=== PATIENT | male | born 1935 | race Caucasian/White ===

== ENCOUNTER 2016-10-30 14:53 | Observation (INO) ==
[2016-10-30 16:30] LABS: Basophils # 0.1 K/mcL (0.0-0.2); Basophils % 0.5 %; Eosinophils # 0.3 K/mcL (0.0-0.6); Eosinophils % 1.4 %; Hematocrit 25.9 % (37.5-50.1); Immature Granulocytes % 0.9 % (0-4); Lymphocytes # 2.1 K/mcL (0.6-4.6); Lymphocytes % 10.4 %; Mean Corpuscular HGB Conc 30.9 g/dL (31.6-35.5); Mean Corpuscular Hemoglobin 25.4 pg (28.0-33.3); Mean Corpuscular Volume 82.2 fL (83.0-100.0); Mean Platelet Volume 9.1 fL (9.4-12.4); Monocytes # 1.3 K/mcL (0.0-1.3); Monocytes % 6.6 %; Neutrophils # 15.9 K/mcL (1.6-8.9); Platelet Count 726 K/mcL (140-400); Red Blood Count 3.15 M/mcL (4.19-5.50); Red Cell Distribution Width 13.9 % (11.5-14.5); Segmented Neutrophils % 80.2 %
[2016-10-30 16:37] LABS: INR 1.2; Prothrombin Time 12.5 Seconds (9.4-12.1)
[2016-10-30 16:40] LABS: Activated Partial Thrombo Time 28.9 Seconds (26.0-36.0)
[2016-10-30 16:44] LABS: Alanine Aminotransferase 20 Units/L (0-55); Albumin/Globulin Ratio 0.7 (1.1-2.2); Alkaline Phosphatase 97 Units/L (38-126); Aspartate Amino Transferase 14 Units/L (5-34); BUN/Creatinine Ratio 19 (6-26); Bilirubin,Direct 0.2 mg/dL (0.0-0.5); Bilirubin,Indirect 0.1 mg/dL (0.0-1.2); Bilirubin,Total 0.3 mg/dL (0.2-1.2); Blood Urea Nitrogen 23 mg/dL (8-26); Carbon Dioxide 25 mEq/L (19-29); Chloride 97 mEq/L (98-109); Globulin 4.1 g/dL (2.4-3.5); Glucose 274 mg/dL (70-99); Osmolality,Calculated 285 (280-300); Potassium 4.6 mEq/L (3.5-4.5); Sodium 131 mEq/L (136-145); Total Protein 7.1 g/dL (6.0-8.3); eGFR For African Americans > 60 (> 60); eGFR For Non-African Americans 56 (> 60)
[2016-10-30 16:45] LABS: Ethanol < 10 mg/dL (0-10)
[2016-10-30 16:56] LABS: Bilirubin,Urine Negative (Negative); Blood,Urine Negative (Negative); Clarity,Urine Clear (Clear); Color,Urine Yellow (Yellow); Glucose,Urine (UA) 250 mg/dL (Normal); Ketones,Urine Negative (Negative); Leukocyte Esterase,Urine Small (Negative); Nitrite,Urine Negative (Negative); PH,Urine 6.5 pH Units (5.0-8.0); Protein,Urine Negative (Neg-Trace); Specific Gravity,Urine 1.017 (1.010-1.025); Urobilinogen,Urine Normal (Normal)
[2016-10-30 16:59] LABS: Bacteria,Urine None Seen per hpf (None-Few); Hyaline Casts,Urine None Seen per lpf (None-Few); RBC,Urine 0-3 per hpf (0-3); Squamous Epithelial Cell,Urine Many per lpf (None-Few); WBC,Urine 0-3 per hpf (0-3)
[2016-10-30 17:02] LABS: Amphetamine Screen,Urine Negative ng/mL (Cutoff=1000); Barbiturate Screen,Urine Negative ng/mL (Cutoff=200); Benzodiazepines Screen,Urine Negative ng/mL (Cutoff=200); Cannabinoid Screen,Urine Negative ng/mL (Cutoff = 50); Cocaine Screen,Urine Negative ng/mL (Cutoff= 300); Opiate Screen,Urine Negative ng/mL (Cutoff=300); Phencyclidine Screen,Urine Negative ng/mL (Cutoff=25)
--- NOTE | 2016-10-30 17:07 | Emergency Department Note ---
Disposition Clinical Impression: Hyponatremia Altered mental status Qualifiers: Altered mental status type: unspecified Qualified Code(s): R41.82 - Altered mental status, unspecified Leukocytosis Qualifiers: Leukocytosis type: unspecified Qualified Code(s): D72.829 - Elevated white blood cell count, unspecified Anemia Qualifiers: Anemia type: unspecified type Qualified Code(s): D64.9 - Anemia, unspecified Syncope Qualifiers: Syncope type: unspecified Qualified Code(s): R55 - Syncope and collapse Disposition: Admitted As Inpatient Condition: Fair Referrals: Filiberto Andrea DO [Primary Care Provider] - Forms: ED Satisfaction Letter Time of Disposition: 17:51 Altered Mental Status HPI - General Chief Complaint: ED Altered Mental Status Stated Complaint: AMS/Weakness/Thinks He's Having Strokes Time Seen by Provider: 10/30/16 15:11 Source: patient, family Mode of arrival: ambulatory Limitations: no limitations Nursing Notes Reviewed: Yes Vital Signs Reviewed: Yes - History of Present Illness HPI Narrative: Patient is an 81-year-old male who presents to [facility] ED with a chief complaint of altered mental status and weakness. He has had several episodes over the last 2 days where he has felt lightheaded and then had a near syncopal episode. Patient denies any pain at this time. Family states he has been talking out of his head and they were concerned that he may have had a stroke. He also has some slurred speech. They have not noted one- sided weakness versus another. Denies any prior strokes or heart attacks. MD complaint: altered mental status Onset (ago): day(s) Timing confirmed by: family member Consistency of Symptoms: getting worse Associated symptoms: Reports: weakness, difficulty walking, other (Multiple falls). Denies: chest pain, cough, fever, chills, loss of appetite, nausea/ vomiting, shortness of breath - Related Data Home Medications Medication Instructions Recorded Confirmed Atorvastatin [Lipitor] 40 mg PO HS 02/04/16 10/30/16 Metformin [Glucophage] 500 mg PO BID 02/04/16 10/30/16 Valsartan [Diovan] 80 mg PO DAILY 02/04/16 10/30/16 Insulin ASPART [Novolog] 13 unit SQ BID 10/30/16 10/30/16 Oxycodone HCl/Acetaminophen 1 tab PO TID PRN 10/30/16 10/30/16 [Percocet 7.5-325 mg Tablet] Allergies Allergy/AdvReac Type Severity Reaction Status Date / Time No Known Allergies Allergy Verified 10/30/16 15:07 All systems ED: reviewed and negative except as stated. Past Medical History - Past Medical History Attestation: Yes The following information was validated with the patient. Source: patient Medical history: Reports: COPD, diabetes, hyperlipidemia, hypertension Surgical history: Reports: cataract Psychiatric history: Reports: no psych history - Social History Smoking Status: Former smoker Smokeless Tobacco Status: No Alcohol use: Reports: none Drug use: Reports: none Physical Exam - General Limitations: no limitations General appearance: alert, in no apparent distress - Head Head exam: atraumatic, normocephalic, normal inspection - Eye Eye exam: Present: normal appearance, PERRL, EOMI - ENT ENT exam: normal exam, normal oropharynx, mucous membranes moist - Neck Neck exam: Present: normal inspection, full ROM, trachea midline - Chest Chest inspection: Present: normal inspection, symmetric chest wall rise - Respiratory Respiratory exam: Present: normal lung sounds bilaterally - Cardiovascular Cardiovascular exam: Present: regular rate, normal rhythm, normal heart sounds - Abdominal Exam Abdominal exam: Present: soft, Non-Tender. Absent: tenderness, distention, guarding, rebound, rigidity - Extremities Exam Extremities exam: Present: full ROM, other (Healing wound on left anterior tibia ). Absent: tenderness, pedal edema - Back Exam Back exam: Present: normal inspection, full ROM. Absent: tenderness - Neurological Exam Neurological exam: Present: alert - Psychiatric Psychiatric exam: Present: normal affect, normal mood - Skin Skin exam: Present: warm, dry, intact, normal color Course Course Narrative: Patient seen and examined. Patient with multiple falls and altered mental status over the last few days. Critical care workup initiated along with CT of the head. Patient is awake and able to answer questions. He is not in any pain at this time. NIH score of 4. Unknown last well time. - Reevaluation(s) Reevaluation #1: Patient does have a leukocytosis of over 20 along with a left shift. Unknown source at this time. His urine looks clean and his chest x-ray shows no signs of pneumonia. His lungs are clear bilaterally. His blood cultures were ordered. I spoke with the hospitalist Dr. Knight who has accepted patient for admission. Time: 17:13 Vital Signs Temperature 97.8 F 10/30/16 15:03 Pulse Rate 88 10/30/16 15:03 Respiratory Rate 20 10/30/16 15:03 Blood Pressure 82/51 10/30/16 15:03 O2 Sat by Pulse Oximetry 95 10/30/16 15:03 Temperature 97.8 F 10/30/16 15:03 Pulse Rate 88 10/30/16 15:54 Respiratory Rate 18 10/30/16 15:54 Blood Pressure 151/55 10/30/16 15:54 O2 Sat by Pulse Oximetry 96 10/30/16 15:54 Oxygen Delivery Oxygen Delivery Room Air Altered Mental Status - Medical Records Medical records reviewed: Yes I reviewed the patient's medical records. - Lab Data Lab results reviewed: Yes I reviewed the patient's lab results. Result diagrams: 10/30/16 16:21 10/30/16 16:21 Lab Results 10/30/16 10/30/16 10/30/16 Range/Units 15:25 16:21 16:21 WBC 19.8 H (4.3-11.1) K/mcL RBC 3.15 L (4.19-5.50) M/mcL Hgb 8.0 L (12.9-16.9) g/dL Hct 25.9 L (37.5-50.1) % MCV 82.2 L (83.0-100.0) fL MCH 25.4 L (28.0-33.3) pg MCHC 30.9 L (31.6-35.5) g/dL RDW 13.9 (11.5-14.5) % Plt Count 726 H (140-400) K/mcL MPV 9.1 L (9.4-12.4) fL Immature Gran % 0.9 (0-4) % Seg Neutrophils % 80.2 % Lymphocytes % 10.4 % Monocytes % 6.6 % Eosinophils % 1.4 % Basophils % 0.5 % Neutrophils # 15.9 H (1.6-8.9) K/mcL Lymphocytes # 2.1 (0.6-4.6) K/mcL Monocytes # 1.3 (0.0-1.3) K/mcL Eosinophils # 0.3 (0.0-0.6) K/mcL Basophils # 0.1 (0.0-0.2) K/mcL Immature Plt Fraction 2.0 (1.1-6.1) % PT 12.5 H (9.4-12.1) Seconds INR 1.2 APTT 28.9 (26.0-36.0) Seconds Sodium (136-145) mEq/L Potassium (3.5-4.5) mEq/L Chloride (98-109) mEq/L Carbon Dioxide (19-29) mEq/L BUN (8-26) mg/dL Creatinine (0.72-1.25) mg/dL Est GFR ( Amer) (> 60) Est GFR (Non-Af Amer) (> 60) BUN/Creatinine Ratio (6-26) Glucose (70-99) mg/dL POC Glucose 231 H (58-89) Calculated Osmolality (280-300) Calcium (8.6-10.8) mg/dL Total Bilirubin (0.2-1.2) mg/dL Direct Bilirubin (0.0-0.5) mg/dL Indirect Bilirubin (0.0-1.2) mg/dL AST (5-34) Units/L ALT (0-55) Units/L Alkaline Phosphatase (38-126) Units/L Ammonia (18-72) mcmol/L Troponin I (0-0.03) ng/mL Serum Total Protein (6.0-8.3) g/dL Albumin (3.5-5.0) g/dL Globulin (2.4-3.5) g/dL Albumin/Globulin Ratio (1.1-2.2) Urine Color (Yellow) Urine Clarity (Clear) Urine pH (5.0-8.0) pH Units Ur Specific Dahlgren (1.010-1.025) Urine Protein (Neg-Trace) mg/dL Urine Glucose (UA) (Normal) mg/dL Urine Ketones (Negative) mg/dL Urine Blood (Negative) Urine Nitrite (Negative) Urine Bilirubin (Negative) Urine Urobilinogen (Normal) mg/dL Ur Leukocyte Esterase (Negative) Urine Microscopic RBC (0-3) per hpf Urine Microscopic WBC (0-3) per hpf Ur Squamous Epith Cells (None-Few) per lpf Urine Bacteria (None-Few) per hpf Hyaline Casts (None-Few) per lpf Ur Culture Indicated? (NO) Urine Opiates Screen (Mllufa=170) ng/mL Ur Barbiturates Screen (Utemsm=359) ng/mL Ur Phencyclidine Scrn (Cutoff=25) ng/mL Ur Amphetamines Screen (Hczdsl=6771) ng/mL U Benzodiazepines Scrn (Unzeis=842) ng/mL Urine Cocaine Screen (Cutoff= 300) ng/mL U Marijuana (THC) Screen (Cutoff = 50) ng/mL Ethyl Alcohol (0-10) mg/dL 10/30/16 10/30/16 10/30/16 Range/Units 16:21 16:21 16:21 WBC (4.3-11.1) K/mcL RBC (4.19-5.50) M/mcL Hgb (12.9-16.9) g/dL Hct (37.5-50.1) % MCV (83.0-100.0) fL MCH (28.0-33.3) pg MCHC (31.6-35.5) g/dL RDW (11.5-14.5) % Plt Count (140-400) K/mcL MPV (9.4-12.4) fL Immature Gran % (0-4) % Seg Neutrophils % % Lymphocytes % % Monocytes % % Eosinophils % % Basophils % % Neutrophils # (1.6-8.9) K/mcL Lymphocytes # (0.6-4.6) K/mcL Monocytes # (0.0-1.3) K/mcL Eosinophils # (0.0-0.6) K/mcL Basophils # (0.0-0.2) K/mcL Immature Plt Fraction (1.1-6.1) % PT (9.4-12.1) Seconds INR APTT (26.0-36.0) Seconds Sodium 131 L (136-145) mEq/L Potassium 4.6 H (3.5-4.5) mEq/L Chloride 97 L (98-109) mEq/L Carbon Dioxide 25 (19-29) mEq/L BUN 23 (8-26) mg/dL Creatinine 1.23 (0.72-1.25) mg/dL Est GFR ( Amer) > 60 (> 60) Est GFR (Non-Af Amer) 56 L (> 60) BUN/Creatinine Ratio 19 (6-26) Glucose 274 H (70-99) mg/dL POC Glucose (58-89) Calculated Osmolality 285 (280-300) Calcium 9.0 (8.6-10.8) mg/dL Total Bilirubin 0.3 (0.2-1.2) mg/dL Direct Bilirubin 0.2 (0.0-0.5) mg/dL Indirect Bilirubin 0.1 (0.0-1.2) mg/dL AST 14 (5-34) Units/L ALT 20 (0-55) Units/L Alkaline Phosphatase 97 (38-126) Units/L Ammonia 11 L (18-72) mcmol/L Troponin I 0.01 (0-0.03) ng/mL Serum Total Protein 7.1 (6.0-8.3) g/dL Albumin 3.0 L (3.5-5.0) g/dL Globulin 4.1 H (2.4-3.5) g/dL Albumin/Globulin Ratio 0.7 L (1.1-2.2) Urine Color (Yellow) Urine Clarity (Clear) Urine pH (5.0-8.0) pH Units Ur Specific Dahlgren (1.010-1.025) Urine Protein (Neg-Trace) mg/dL Urine Glucose (UA) (Normal) mg/dL Urine Ketones (Negative) mg/dL Urine Blood (Negative) Urine Nitrite (Negative) Urine Bilirubin (Negative) Urine Urobilinogen (Normal) mg/dL Ur Leukocyte Esterase (Negative) Urine Microscopic RBC (0-3) per hpf Urine Microscopic WBC (0-3) per hpf Ur Squamous Epith Cells (None-Few) per lpf Urine Bacteria (None-Few) per hpf Hyaline Casts (None-Few) per lpf Ur Culture Indicated? (NO) Urine Opiates Screen (Mkaayh=681) ng/mL Ur Barbiturates Screen (Xebiea=406) ng/mL Ur Phencyclidine Scrn (Cutoff=25) ng/mL Ur Amphetamines Screen (Iqldds=5701) ng/mL U Benzodiazepines Scrn (Dldtml=563) ng/mL Urine Cocaine Screen (Cutoff= 300) ng/mL U Marijuana (THC) Screen (Cutoff = 50) ng/mL Ethyl Alcohol < 10 (0-10) mg/dL 10/30/16 10/30/16 Range/Units 16:48 16:48 WBC (4.3-11.1) K/mcL RBC (4.19-5.50) M/mcL Hgb (12.9-16.9) g/dL Hct (37.5-50.1) % MCV (83.0-100.0) fL MCH (28.0-33.3) pg MCHC (31.6-35.5) g/dL RDW (11.5-14.5) % Plt Count (140-400) K/mcL MPV (9.4-12.4) fL Immature Gran % (0-4) % Seg Neutrophils % % Lymphocytes % % Monocytes % % Eosinophils % % Basophils % % Neutrophils # (1.6-8.9) K/mcL Lymphocytes # (0.6-4.6) K/mcL Monocytes # (0.0-1.3) K/mcL Eosinophils # (0.0-0.6) K/mcL Basophils # (0.0-0.2) K/mcL Immature Plt Fraction (1.1-6.1) % PT (9.4-12.1) Seconds INR APTT (26.0-36.0) Seconds Sodium (136-145) mEq/L Potassium (3.5-4.5) mEq/L Chloride (98-109) mEq/L Carbon Dioxide (19-29) mEq/L BUN (8-26) mg/dL Creatinine (0.72-1.25) mg/dL Est GFR ( Amer) (> 60) Est GFR (Non-Af Amer) (> 60) BUN/Creatinine Ratio (6-26) Glucose (70-99) mg/dL POC Glucose (58-89) Calculated Osmolality (280-300) Calcium (8.6-10.8) mg/dL Total Bilirubin (0.2-1.2) mg/dL Direct Bilirubin (0.0-0.5) mg/dL Indirect Bilirubin (0.0-1.2) mg/dL AST (5-34) Units/L ALT (0-55) Units/L Alkaline Phosphatase (38-126) Units/L Ammonia (18-72) mcmol/L Troponin I (0-0.03) ng/mL Serum Total Protein (6.0-8.3) g/dL Albumin (3.5-5.0) g/dL Globulin (2.4-3.5) g/dL Albumin/Globulin Ratio (1.1-2.2) Urine Color Yellow (Yellow) Urine Clarity Clear (Clear) Urine pH 6.5 (5.0-8.0) pH Units Ur Specific Dahlgren 1.017 (1.010-1.025) Urine Protein Negative (Neg-Trace) mg/dL Urine Glucose (UA) 250 H (Normal) mg/dL Urine Ketones Negative (Negative) mg/dL Urine Blood Negative (Negative) Urine Nitrite Negative (Negative) Urine Bilirubin Negative (Negative) Urine Urobilinogen Normal (Normal) mg/dL Ur Leukocyte Esterase Small H (Negative) Urine Microscopic RBC 0-3 (0-3) per hpf Urine Microscopic WBC 0-3 (0-3) per hpf Ur Squamous Epith Cells Many H (None-Few) per lpf Urine Bacteria None Seen (None-Few) per hpf Hyaline Casts None Seen (None-Few) per lpf Ur Culture Indicated? YES A (NO) Urine Opiates Screen Negative (Aopgyf=540) ng/mL Ur Barbiturates Screen Negative (Qixmlo=707) ng/mL Ur Phencyclidine Scrn Negative (Cutoff=25) ng/mL Ur Amphetamines Screen Negative (Mdqfcb=5489) ng/mL U Benzodiazepines Scrn Negative (Dkztnn=742) ng/mL Urine Cocaine Screen Negative (Cutoff= 300) ng/mL U Marijuana (THC) Screen Negative (Cutoff = 50) ng/mL Ethyl Alcohol (0-10) mg/dL - Radiology Data Radiology results reviewed: Yes I reviewed the patient's radiology results. - EKG Data EKG attestation: Yes I reviewed and interpreted this EKG. EKG results narrative: EKG done at 1521 shows normal sinus rhythm with a rate of [address] elevation or depression noted. Left axis deviation. Right bundle branch block noted. Occasional PVCs noted. Attestation Statement - Attestation Attestation: Patient was seen with resident physician. I reviewed the history, physical, assessment and plan, and agree with the findings. I also personally evaluated this patient and had [id number] time with this patient. 81-year-old male presents to the emergency department with mental status change and generalized weakness worse for the last 2 days. Really ongoing for approximately 2 week period of time family says he has not been acting as well as usual with a little bit slurred speech, but no real focal weakness. Patient himself is a poor historian but answers questions and follows commands entirely and has no specific complaints today were really concerned him was a syncopal episode that happened while he was going to the bathroom he seems to have passed out for a brief period of time, and this in addition with the multiple other episodes very similar to this over the last several days ultimately prompted the visit. On examination ENT is normocephalic atraumatic neck is nontender heart is distant to auscultation, lungs were clear with no wheezing or rhonchi. Abdomen is soft and nontender extremities show no acute abnormalities, he does have some evidence of skin breakdown on the left bedolla. Neurologically patient is alert and follows commands his stroke score was 4 based on slurred speech and weakness. CT scan of the head revealed no acute changes or abnormalities. He did have an elevated white blood cell count and some other electrolyte abnormalities as well as anemia. Blood cultures were sent. Chest x-ray revealed no changes there and an EKG was also unremarkable. Patient did not qualify for stroke alert because of the chronicity of the symptoms. At this point it is much a syncopal workup as mental status change. He is going to require hospitalization to correct electrolyte abnormalities and to improve his mental status. He may also require PT and OT evaluation. Hospitalist was notified. Patient was admitted for further evaluation and treatment I agree with the resident physician assessment and plan.
[2016-10-30] MEDS ORDERED: 0.9 % Sodium Chloride 500 ML IVC ONE (18:09)
[2016-10-30] MEDS ORDERED: Naloxone 0.4 MG/ML INJ IVP PRN (18:50)
[2016-10-30] MEDS ORDERED: *HR* Dextrose 50 % in Water (Syg) 50 ML SYRINGE IVP PRN (18:53)
[2016-10-30] MEDS ORDERED: Dextrose Gel 15 GM PO PRN ×2 (18:53)
[2016-10-30] MEDS ORDERED: D5% in Water 1,000 ML IV PRN (18:53)
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
[2016-10-30] MEDS: Insulin LISPRO 300 UNITS/3 ML VIAL SQ SCH (22:28)
[2016-10-31] MEDS ORDERED: Acetaminophen IV 1,000 MG/100 ML INFUS..BTL IVPB ONE (04:33)
[2016-10-31] MEDS ORDERED: Ketorolac 15 MG/ML VIAL IVP ONE (04:33)
[2016-10-31] MEDS: *HR* OxyCODONE/APAP 7.5/325 TABLET PO PRN ×2 (04:47→13:55)
[2016-10-31] MEDS: *HR* Enoxaparin 40 MG/0.4 ML SYRINGE SQ SCH (05:00)
[2016-10-31 05:30] LABS: Basophils # 0.1 K/mcL (0.0-0.2); Basophils % 0.5 %; Eosinophils # 0.6 K/mcL (0.0-0.6); Eosinophils % 3.6 %; Hematocrit 25.6 % (37.5-50.1); Hemoglobin 7.8 g/dL (12.9-16.9); Immature Granulocytes % 1.2 % (0-4); Lymphocytes # 2.8 K/mcL (0.6-4.6); Lymphocytes % 16.4 %; Mean Corpuscular HGB Conc 30.5 g/dL (31.6-35.5); Mean Corpuscular Hemoglobin 25.2 pg (28.0-33.3); Mean Corpuscular Volume 82.6 fL (83.0-100.0); Mean Platelet Volume 9.2 fL (9.4-12.4); Monocytes # 1.3 K/mcL (0.0-1.3); Monocytes % 7.8 %; Neutrophils # 11.9 K/mcL (1.6-8.9); Platelet Count 646 K/mcL (140-400); Red Cell Distribution Width 13.7 % (11.5-14.5); Segmented Neutrophils % 70.5 %
[2016-10-31 05:49] LABS: BUN/Creatinine Ratio 16 (6-26); Blood Urea Nitrogen 20 mg/dL (8-26); Calcium 9.2 mg/dL (8.6-10.8); Carbon Dioxide 26 mEq/L (19-29); Chloride 100 mEq/L (98-109); Chol/HDL Ratio 3.1 (0-4.9); Cholesterol 106 mg/dL (< 200); Glucose 206 mg/dL (70-99); HDL Cholesterol 34 mg/dL (40-59); LDL Cholesterol,Calculated 50 mg/dL (0-99); Osmolality,Calculated 287 (280-300); Potassium 4.8 mEq/L (3.5-4.5); Sodium 134 mEq/L (136-145); Triglycerides 111 mg/dL (< 150); eGFR For African Americans > 60 (> 60); eGFR For Non-African Americans 55 (> 60)
[2016-10-31] MEDS: Insulin LISPRO 300 UNITS/3 ML VIAL SQ SCH ×4 (08:20→21:02)
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
[2016-10-31] MEDS: Aspirin 81 MG TAB.CHEW PO SCH (12:21)
--- NOTE | 2016-10-31 13:02 | ECHO - Doppler Report ---
Echo with Saline Contrast Name: Rory Starks Date of Study: 10/31/2016 Date: 1935 Ht: 74.0 in Medical Record#: [id number] Age: 81 Wt: 198.0 lb Gender: Male BSA: 2.16 Order #: [id number] Location: [facility] Room #: 3A41 Reading Physician: Pilo Colon DO, AGUEDA MOON FASNC Community Association Manager: Michelle Estrada Ordering Physician: Leander Ha MD Primary Physician: Filiberto Andrea DO Indications: Cerebrovascular Accident Impressions: LVEF 60-65%. Normal LV chamber size and function. Mild concentric left ventricular hypertrophy. Mild left ventricular diastolic dysfunction. Normal right ventricular structure and function. Agitated saline administered, but image quality is inadequate to evaluate for shunting. Mildly calcified aortic valve leaflets. No stenosis by the Doppler measurements obtained. No evidence of pulmonary hypertension. Left Ventricular Wall Motion: Rest Echo Findings All wall segments showed normal motion. Findings: Study Quality * Technically sub-optimal due to poor echocardiographic windows. ECG Findings * Normal sinus rhythm. Left Ventricle * LVEF 60-65%. * Normal LV chamber size and function. * Mild concentric left ventricular hypertrophy. * Mild left ventricular diastolic dysfunction. Right Ventricle * Normal right ventricular structure and function. Left Atrium * Moderately dilated left atrium. Right Atrium * Mildly dilated right atrium. Interatrial Septum * Agitated saline administered, but image quality is inadequate to evaluate for shunting. Aortic Valve * Aortic valve not well visualized. * Mildly calcified aortic valve leaflets. * No aortic regurgitation. * No aortic stenosis. Mitral Valve * Mildly thickened mitral valve leaflets. * No mitral regurgitation. * No mitral stenosis. Tricuspid Valve * Normal tricuspid valve structure and function. * Trace tricuspid regurgitation. * No evidence of pulmonary hypertension. Pulmonic Valve * Pulmonic valve not well visualized. Aorta * Normally sized aortic root. Pericardium * The pericardium appears normal. IVC * The IVC is not well evaluated. Pulmonary Artery * Pulmonary artery not well visualized. History Contrast: Agitated saline 30 ml. Measurements: BP: 149/ 72 2D Normal Values RVIDd: 3.00 cm <2.7 cm IVSd: 1.40 cm 0.6 - 1.0 cm LVIDd: 5.00 cm 3.7 - 5.6 cm LVPWd: 1.40 cm 0.6 - 1.1 cm LVIDs: 3.60 cm 1.5 - 3.6 cm AO: 2.70 cm < 4.0 cm LA: 3.60 cm 2.0 - 4.0cm %FS: 28.00 cm >25 % LA volume: 63 Mitral Valve Peak E:.71 m/sec Peak A:1.00 m/sec E/A Ratio:0.7 Peak E' Lat Huang:4.87 cm/s Peak E' Med Huang:4.39 cm/s E/E' Lat Ratio:14.6 E/E' Med Ratio:16.2 Tricuspid Valve TV Regurg Peak Grad: 26.00mmHg TV Regurg Peak Huang: 2.55m/sec Updated by Pilo Colon DO, FACJohn, AGUEDA, SIERRA on 10/31/2016 12:55:30 PM electronically signed on 10/31/2016 12:56:37 PM with status of Final Wall Motion Claudio: 1=Normal, 2=Hypokinesis, 3=Akinesis, 4=Dyskinesis, 5=Aneurysmal, 6=Hyperkinetic, X=Not Visualized (Blank)=Missing
--- NOTE | 2016-10-31 15:02 | Electrocardiograph Report ---
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
[2016-11-01] MEDS: *HR* OxyCODONE/APAP 7.5/325 TABLET PO PRN ×2 (02:10→11:13)
[2016-11-01 05:00] LABS: Basophils # 0.1 K/mcL (0.0-0.2); Basophils % 0.5 %; Eosinophils # 0.8 K/mcL (0.0-0.6); Eosinophils % 4.8 %; Hematocrit 24.3 % (37.5-50.1); Hemoglobin 7.3 g/dL (12.9-16.9); Immature Granulocytes % 0.8 % (0-4); Lymphocytes % 18.9 %; Mean Corpuscular Hemoglobin 24.4 pg (28.0-33.3); Mean Corpuscular Volume 81.3 fL (83.0-100.0); Mean Platelet Volume 9.1 fL (9.4-12.4); Monocytes # 1.1 K/mcL (0.0-1.3); Monocytes % 7.1 %; Neutrophils # 10.8 K/mcL (1.6-8.9); Platelet Count 627 K/mcL (140-400); Red Blood Count 2.99 M/mcL (4.19-5.50); Segmented Neutrophils % 67.9 %
[2016-11-01 05:11] LABS: % Iron Saturation 4 % (20-55); BUN/Creatinine Ratio 17 (6-26); Blood Urea Nitrogen 22 mg/dL (8-26); Calcium 8.9 mg/dL (8.6-10.8); Carbon Dioxide 25 mEq/L (19-29); Chloride 99 mEq/L (98-109); Glucose 177 mg/dL (70-99); Iron 16 mcg/dL (65-175); Osmolality,Calculated 284 (280-300); Potassium 4.6 mEq/L (3.5-4.5); Sodium 133 mEq/L (136-145); Transferrin 276 mg/dL (174-364); eGFR For African Americans > 60 (> 60); eGFR For Non-African Americans 52 (> 60)
[2016-11-01 05:31] LABS: Ferritin 15 ng/ml (22-275)
[2016-11-01 05:37] LABS: Hemoglobin A1C 7.1 %
[2016-11-01 05:45] LABS: Folate 4.9 ng/mL (7.0-31.4)
[2016-11-01] MEDS: *HR* Enoxaparin 40 MG/0.4 ML SYRINGE SQ SCH (06:23)
[2016-11-01 06:51] LABS: Thyroid Stimulating Hormone 2.258 mcIU/mL (0.350-4.840)
[2016-11-01] MEDS ORDERED: Ferumoxytol 510 MG in 0.9 % Sodium Chloride 100 ML IVPB ONE (07:31)
[2016-11-01] MEDS: Aspirin 81 MG TAB.CHEW PO SCH (08:08)
[2016-11-01] MEDS: Insulin LISPRO 300 UNITS/3 ML VIAL SQ SCH ×2 (08:08→13:50)
[2016-11-01] MEDS ORDERED: Folic Acid 1 MG TABLET PO SCH (09:00)
--- NOTE | 2016-11-01 09:41 | Carotid Imaging Report ---
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 Findings Carotid Duplex: Right: The right proximal common carotid artery has a PSV of 68 cm/s and a EDV of 9 cm/s. The right mid common carotid artery has a PSV of 63 cm/s and a EDV of 16 cm/s. The right distal common carotid artery has a PSV of 62 cm/s and a EDV of 16 cm/s. There is nonstenotic plaque in the right bifurcation with a PSV of 71 cm/s and a EDV of 20 cm/s. There is smooth heterogeneous plaque. There is nonstenotic plaque in the right proximal internal carotid artery with a PSV of 84 cm/s and a EDV of 26 cm/s. There is smooth heterogeneous plaque. There is nonstenotic plaque in the right mid internal carotid artery with a PSV of 107 cm/s and a EDV of 34 cm/s. The right distal internal carotid artery has a PSV of 72 cm/s and a EDV of 20 cm/s. The right eca has a PSV of 92 cm/s and a EDV of 8 cm/s. The right vertebral artery has a PSV of 87 cm/s and a EDV of 22 cm/s. Left: The left proximal common carotid artery has a PSV of 70 cm/s and a EDV of 10 cm/s. The left mid common carotid artery has a PSV of 50 cm/s and a EDV of 12 cm/s. The left distal common carotid artery has a PSV of 41 cm/s and a EDV of 10 cm/s. The left bifurcation has a PSV of 35 cm/s and a EDV of 8 cm/s. There is nonstenotic plaque in the left proximal internal carotid artery with a PSV of 58 cm/s and a EDV of 19 cm/s. There is smooth heterogeneous plaque. There is nonstenotic plaque in the left mid internal carotid artery with a PSV of 84 cm/s and a EDV of 25 cm/s. There is smooth heterogeneous plaque. The left distal internal carotid artery has a PSV of 59 cm/s and a EDV of 19 cm/s. The left eca has a PSV of 77 cm/s and a EDV of 8 cm/s. The left vertebral artery has a PSV of 59 cm/s and a EDV of 18 cm/s. Carotid Results Right PSV EDV Assessment Proximal CCA 68 9 Mid CCA 63 16 Distal CCA 62 16 Bifurcation 71 20 Proximal ICA 84 26 Mid ICA 107 34 Distal ICA 72 20 ECA 92 8 Vertebral Artery 87 22 Left PSV EDV Assessment Proximal CCA 70 10 Mid CCA 50 12 Distal CCA 41 10 Bifurcation 35 8 Proximal ICA 58 19 Mid ICA 84 25 Distal ICA 59 19 ECA 77 8 Vertebral Artery 59 18 Ratio's Right ICA/CCA Ratio: 1.70 ICA/CCA Values: 107/63 Left ICA/CCA Ratio: 1.70 ICA/CCA Values: 84/50 Updated by Elia Hayes MD on 11/01/2016 9:37:30 AM electronically signed on 11/01/2016 9:37:44 AM with status of Final
[2016-11-01 12:05] VITALS: BP 116/45
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
== END 2016-11-01 16:50 | disposition home health service (06) ==
LOC: EMEROO 14:53 → 3ANU 14:53 → SUATTDRO 17:54 → 3ANU 18:28
PROVIDERS: ADMIT Internal Medicine; ATTEND Nurse Practitioner Family